=== PATIENT | male | born 2000 | race Caucasian/White ===

== ENCOUNTER 2019-12-09 02:51 | Emergency (ER) | payer BC ==
[~2019-12-09] VITALS: Ht 182.9 cm; Wt 90.7 kg
[2019-12-09 04:35] VITALS: BP 120/70
== END 2019-12-09 04:35 | disposition home or self-care (01) ==
LOC: M.ERS 02:51
DX: R04.0 Epistaxis (principal); Z88.0 Allergy status to penicillin; Z88.1 Allergy status to other antibiotic agents